=== PATIENT | male | born 1995 | race Two or more races ===

== ENCOUNTER 2024-11-08 09:44 | Emergency (ER) | payer SELFPAY ==
[2024-11-08 09:55] VITALS: BP 129/65; PULSE 60; RESP 16; TEMP 36.7; O2SAT 97; BMI 28.4
--- NOTE | 2024-11-08 09:58 | XR_ITS ---
Examination: CT abdomen and pelvis without contrast. Coronal 3-D reconstructions. Sagittal 2-D reconstructions. Date and time of exam:November 08, 2024 at 0236 hours INDICATIONS: Onset right-sided flank pain beginning this morning CTDI: vol (mGy): 8.04 DLP: (mGycm): 472 Technique: Axial images of the abdomen have been obtained, 3 mm slice thickness Intravenous contrast material has not been administered. Low dose protocols were performed. One or more of the following dose reduction techniques were used; automated exposure control, adjustment of the mA and/or KV according to patient size, use of iterative reconstruction technique. Findings: No focal liver or splenic lesions No gallstones No pancreatic or adrenal mass 8 mm soft calcification lower pole left kidney Minimal right hydronephrosis secondary to 2 mm distal right ureterovesical junction calculus No bowel obstruction Absent appendix Urinary bladder intact IMPRESSION: Minimal right hydronephrosis secondary to 2 mm distal right ureterovesical junction calculus
[2024-11-08] MEDS: ONDANSETRON ODT 4 MG TABRAP PO (10:03)
[2024-11-08] MEDS: KETOROLAC INJ 30 MG/ML VIAL IM (10:03)
[2024-11-08 10:12] LABS: Collection Type, Urine Clean Catch; Squamous Epithelial Cell,Urine 0 /hpf (0-5)
[2024-11-08 10:29] LABS: Basophils % (Auto) 0 % (0-2.5); Eosinophils % (Auto) 0 % (0-10); Hemoglobin 15.5 g/dL (13.5-16.0); Immature Granulocytes % (Auto) 0 % (0-0); Immature Granulocytes Auto 0.05 Thou/mm3 (0.00-0.00); Lymphocytes # (Auto) 1.1 Thou/mm3 (1.0-4.8); Lymphocytes % (Auto) 8 % (10-50); Mean Corpuscular HGB Conc 34.4 g/dl (31.0-37.0); Mean Corpuscular Hemoglobin 28.5 pg (25.0-35.0); Mean Corpuscular Volume 83 fL (80-100); Monocytes # (Auto) 0.6 Thou/mm3 (0.0-0.8); Monocytes % (Auto) 4 % (0-12); Neutrophils # (Auto) 12.1 Thou/mm3 (1.8-7.7); Neutrophils % (Auto) 87 % (37-80); Nucleated Red Blood Cell % 0 /100 WBC (0); Platelet Count 297 Thou/mm3 (140-440); RDW Standard Deviation 37.8 fL (35.1-43.9); Red Blood Count 5.44 Miln/mm3 (4.50-5.90); White Blood Count 13.9 Thou/mm3 (3.8-10.6)
[2024-11-08 10:37] LABS: Alanine Aminotransferase 13 U/L (10-49); Albumin, Serum 5.2 gm/dL (3.5-5.0); Albumin/Globulin Ratio 1.9 (1.2-2.2); Alkaline Phosphatase 93 U/L (46-116); Anion Gap 10 (7-16); Aspartate Amino Transferase 13 U/L (0-34); BUN/Creatinine Ratio 12 Ratio (12-20); Bilirubin,Total 1.4 mg/dL (0.3-1.2); Blood Urea Nitrogen 11 mg/dL (9-23); Calcium 10.3 mg/dL (8.3-10.6); Calcium (Corrected) 10.3 mg/dL (8.5-10.1); Carbon Dioxide 26.9 mMol/L (20.0-31.0); Chloride 106 mMol/L (98-107); Creatinine (Component) 0.9 mg/dL (0.6-1.3); Estimated Creatinine Clearance 128.4 mL/min (>60); Globulin 2.8 gm/dL (2.3-3.5); Glucose 128 mg/dL (74-106); Lipase 67 U/L (12-53); Osmolality,Calculated 286 (275-295); Potassium 3.4 mMol/L (3.4-5.1); Sodium 143 mMol/L (136-145); eGFR > 60 See Note
--- NOTE | 2024-11-08 11:14 | PD.EDABDPN ---
ED Abdominal Pain RME/HPI General Chief Complaint: Abdominal Pain Stated complaint: RIGHT SIDE ABD PAIN TODAY Time seen by provider: 11/08/24 09:47 Arrival date/time: 11/08/24 09:44 29-year-old male presents emergency department complaint of right flank pain ongoing x 1 day patient reports history of appendectomy patient reports no other significant problems Limitations: no limitations Related Data Previous Rx's ?Medication ?Instructions ?Recorded hydrocodone 5 mg-acetaminophen 325 1 tab PO BID PRN pain #10 tabs 11/08/24 mg tablet ibuprofen 800 mg tablet 800 mg PO TID PRN pain #30 tabs 11/08/24 ondansetron 4 mg disintegrating 4 mg PO Q8H PRN nausea and 11/08/24 tablet vomiting #10 tabs Allergies Allergy/AdvReac Type Severity Reaction Status Date / Time amoxicillin Allergy Severe Swelling Verified 11/08/24 09:46 of Lip/Tongue/Throat Review of Systems Review of Systems Systems Reviewed: All systems reviewed, normal except as documented Constitutional Constitutional: Reports system reviewed and no additional complaints, except as documented, Denies fever(s) and Denies headache(s) Eyes Eyes: Reports system reviewed and no additional complaints, except as documented and Denies blurry vision ENT Ears, Nose, Mouth, and Throat: Reports system reviewed and no additional complaints, except as documented, Denies headache(s), Denies nasal congestion and Denies nasal discharge Cardiovascular Cardiovascular: Reports system reviewed and no additional complaints, except as documented, Denies chest pain and Denies dyspnea Respiratory Respiratory: Reports system reviewed and no additional complaints, except as documented, Denies chest congestion, Denies cough and Denies dyspnea Gastrointestinal Gastrointestinal: Reports system reviewed and no additional complaints, except as documented, Denies abdominal pain and Reports other (Renal colic) Integumentary/Breasts Skin/Breast: Reports system reviewed and no additional complaints, except as documented and Denies rash Neurologic Neurologic: Reports system reviewed and no additional complaints, except as documented, Reports as per HPI and Denies headache(s) Past Medical History Social History SMOKING STATUS: Never smoker ED Exam General Limitations: Present no limitations General appearance: Present alert and in no apparent distress Head Head exam: Present atraumatic, normocephalic and normal inspection Eye Eye exam: Present normal appearance, PERRL and EOMI; Absent conjunctival injection ENT ENT exam: Present normal exam, normal oropharynx and mucous membranes moist Neck Neck exam: Present normal inspection, full ROM and trachea midline Chest Chest inspection: Present normal inspection and symmetric chest wall rise Respiratory Respiratory exam: Present normal lung sounds bilaterally; Absent respiratory distress Cardiovascular Cardiovascular exam: Present regular rate, normal rhythm and normal heart sounds Abdominal Exam Abdominal exam: Present soft, normal bowel sounds and other (Right flank pain); Absent distention, tenderness, guarding, rebound or rigidity Extremities Exam Extremities exam: Present normal inspection and full ROM Back Exam Back exam: Present normal inspection and full ROM Neurological Exam Neurological exam: Present alert, oriented X3 and CN II-XII intact Psychiatric Psychiatric exam: Present normal affect and normal mood Skin Skin exam: Present warm, dry, intact and normal color Course Quality Measures none Orders Category Date Time Status CT abdomen pelvis wo con Stat Exams 11/08/24 09:58 Completed CBC Stat Lab 11/08/24 10:07 Completed Comprehensive Metabolic Panel Stat Lab 11/08/24 10:07 Completed Lipase Stat Lab 11/08/24 10:07 Completed UA, C/S IF [Urinalysis, C/S if Indicated] Stat Lab 11/08/24 10:07 Completed Ketorolac Inj [Toradol Inj] Med 11/08/24 09:58 Discontinued 30 mg IM X1 ONE Ondansetron Odt [Zofran Odt] Med 11/08/24 09:58 Discontinued 4 mg PO X1 ONE Vital Signs Vital signs: Vital Signs Temperature 98.1 F 11/08/24 09:55 Pulse Rate 60 11/08/24 09:55 Respiratory Rate 16 11/08/24 09:55 Blood Pressure 129/65 11/08/24 09:55 Pulse Oximetry (%) 97 11/08/24 09:55 Oxygen Delivery Method Room Air 11/08/24 09:55 O2 saturation 97% room air within normal limits Abdominal Pain MDM MDM Narrative MDM Narrative:: 29-year-old male presents emergency department complaint of right flank pain ongoing x 1 day patient reports history of appendectomy patient reports no other significant problems On exam patient well-appearing patient does not appear ill or toxic and in no acute distress On exam patient does have quite a bit of pain Patient was given Toradol for pain Lab work as well as CT scan obtained CT scan consistent with kidney stone Symptoms highly consistent with renal colic Patient discharged home in no distress to follow-up with primary care doctor in the next 24 to 48 hours and for any worsening symptoms to return to the ER immediately Patient data External records reviewed:: [facility] previous records Clinical information provided by:: patient Social determinants that could affect healthcare access:: none Patient has the following chronic illnesses:: None How is presenting disease/condition affected by chronic disease/condition?: no chronic disease Evaluation data The following diagnostics were reviewed and interpreted by me:: lab results and radiology exam(s) Lab and/or radiology exams considered but not ordered:: Labs radiology obtained Interpretation Summary: Reviewed by me Medications / Prescriptions Medications or Prescriptions considered but not ordered:: Given Medication administrations:: Medication Administration History Discontinued Medications Ketorolac Tromethamine (Ketorolac Inj 30 Mg/Ml Vial) 30 mg IM X1 ONE Stop: 11/08/24 09:59 Last Admin: 11/08/24 10:03 Dose: 30 mg Documented By: LIZ Ondansetron HCl (Ondansetron Odt 4 Mg Tabrap) 4 mg PO X1 ONE; Protocol Stop: 11/08/24 09:59 Last Admin: 11/08/24 10:03 Dose: 4 mg Documented By: LIZ given Consultations Consultation(s) initiated? (list below): No Diagnosis Differential diagnosis abdominal pain: abdominal pain, acute appendicitis, calculus of kidney, gastroenteritis and pancreatitis Most likely diagnosis given after review of the tests above:: Calculus of kidney Admission Indicated Admission indicated?: not indicated Admission Request Was there a request for admission?: No Disposition Plan Disposition Plan: Discharge Discharge Attestation Discharge Attestation: The patient and all family members were given an opportunity to ask questions and understood the discharge instructions. Discharge instructions specifically effects, indications for sooner follow up or return to the emergency department, and the expected course of current diagnosis. Patient condition: Stable Discharge Plan Plan Patient Disposition: HOME (Self Care) Disposition Comment: Stable Prescriptions/Referrals Prescriptions/Med Rec: New ibuprofen 800 mg tablet 800 mg PO TID PRN (Reason: pain) Qty: 30 0RF hydrocodone-acetaminophen 5-325 mg tablet 1 tab PO BID MDD 10 PRN (Reason: pain) Qty: 10 0RF ondansetron 4 mg tablet,disintegrating 4 mg PO Q8H PRN (Reason: nausea and vomiting) Qty: 10 0RF Referrals: Truman Koch MD [Primary Care Provider] - 11/09/24 Problem List Clinical Impression: Renal colic Patient/Caregiver Discharge Instructions Education Materials: ED Kidney Stone w/ Colic Additional Instructions: Please follow up with your primary care doctor in the next 24-48hrs for any worsening symptoms return here immediately Print Language: Polish Stand Alone Forms: Tran Award Info., Work/School Release, Patient Portal Info Letter PA/ELEVATING GRADER OPERATOR Supervising Physician PA/ELEVATING GRADER OPERATOR Supervising Physician: Dr Singleton
[2024-11-08 11:23] LABS: Bilirubin,Urine Negative (Negative); Blood,Urine 3+ (Negative); Color,Urine Orange (Lt Yel-Yel); Culture Indicated,Urine Not Indicated; Glucose, Urine Negative (Negative); Ketones,Urine 1+ (Negative); Leukocyte Esterase,Urine Positive (Negative); Nitrite,Urine Negative (Negative); Protein,Urine 3+ (Neg - Trace); RBC,Urine 4577 /hpf (0-3); Specific Gravity,Urine 1.035 (1.001-1.035); Urobilinogen,Urine Negative mg/dL (0.0-1.0); WBC,Urine 3 /hpf (0-5)
[2024-11-08 11:33] LABS: Clarity,Urine Turbid (Clear/Hazy)
[2024-11-08 11:34] LABS: Sperm,Urine Present
== END 2024-11-08 12:10 | disposition home or self-care (01) ==
PROVIDERS: Nurse Practitioner Primary Care; Emergency Provider Emergency Medicine; PCP Family Medicine
DX: N23 Unspecified renal colic (principal); Z90.49 Acquired absence of other specified parts of digestive tract
CPT/HCPCS: 36415; 74176; 80053; 81001; 83690; 85025; 96372; 99284; J1885; Q0162

== ENCOUNTER 2025-09-23 21:21 | Emergency (ER) | payer BC, SELFPAY ==
[2025-09-23 21:22] VITALS: BMI 32.5
--- NOTE | 2025-09-23 21:43 | XR_ITS ---
Examination: Hand, left 3 views Technique: Hand AP, oblique, lateral 3 views Date and time of exam: September 23, 2025, 10:10 a.m. INDICATIONS: Injury to the hand today, hand pain. FINDINGS: No acute fracture No dislocation No foreign body IMPRESSION: No acute fracture
--- NOTE | 2025-09-23 21:44 | EDNOTE_ITS ---
Upper Extremity Injury RME/HPI General Chief Complaint: Hand/Wrist Problems Stated Complaint: L WRIST/HAND INJURY Time Seen by Provider: 09/23/25 21:25 Source: patient, RN notes reviewed and old records reviewed Arrival date/time: 09/23/25 21:21 Mode of arrival: ambulatory Limitations: no limitations RME / HPI RME / HPI narrative: 20yom presents to ED for hand pain. Patient reports he accidentally slammed left hand in the car door earlier today. No deformity reported. Patient took ibuprofen and applied velcro wrist brace customer support assistant. Related Data Previous Rx's ?Medication ?Instructions ?Recorded hydrocodone 5 mg-acetaminophen 325 1 tab PO BID PRN pa in #10 tabs 11/08/24 mg tablet ibuprofen 800 mg tablet 800 mg PO TID PRN pain #30 t abs 11/08/24 ondansetron 4 mg disintegrating 4 mg PO Q8H PRN nausea and 11/08/24 tablet vomiting #10 tabs Allergies Allergy/AdvReac Type Severity Reaction Status Date / Time amoxicillin Allergy Severe Swelling Verified 09/23/25 21:26 of Lip/Tongue/Throat Review of Systems Review of Systems Systems Reviewed: All systems reviewed, normal except as documented Musculoskeletal Musculoskeletal: Reports arthralgias, Denies deformity, Reports joint swelling, Reports limited range of motion, Denies numbness and Denies tingling Neurologic Neurologic: Denies numbness and Denies tingling Past Medical History Past Medical History GASTROINTESTINAL: Positive Obesity Surgical History OTHER SURGICAL HX: Denies past surgical history Social History SMOKING STATUS: Never smoker SUBSTANCE USE: does not use ALCOHOL: Never ED Exam General Limitations: Present no limitations General appearance: Present alert and in no apparent distress Head Head exam: Present atraumatic and normocephalic Eye Eye exam: Present normal appearance, PERRL and EOMI ENT ENT exam: Present normal exam and mucous membranes moist Neck Neck exam: Present normal inspection and full ROM Chest Chest inspection: Present normal inspection and symmetric chest wall rise Respiratory Respiratory exam: Present normal lung sounds bilaterally; Absent respiratory distress Cardiovascular Cardiovascular exam: Present regular rate and normal rhythm Extremities Exam Extremities exam: Present other (Mild tenderness/swelling to dorsal left hand. No wrist ttp. Limited ROM 2/2 pain. Able to wiggle all fingers. <2s cap refill, sensation intact) Neurological Exam Neurological exam: Present alert and oriented X3 Psychiatric Psychiatric exam: Present normal affect and normal mood Skin Skin exam: Present warm, dry, intact and other (Left dorsal hand contusion) Course Quality Measures none Orders Category Date Time Status XR hand comp LT min 3V Stat Exams 09/23/25 21:43 Completed Vital Signs Vital signs: Vital Signs Temperature 98.4 F 09/23/25 21:46 Pulse Rate 86 09/23/25 21:46 Respiratory Rate 18 09/23/25 21:46 Blood Pressure 126/79 09/23/25 21:46 Pulse Oximetry (%) 96 09/23/25 21:46 Oxygen Delivery Method Room Air 09/23/25 21:46 Extremity Injury MDM Narrative MDM Narrative:: 20yom presents to ED for hand pain. Patient reports he accidentally slammed left hand in the car door earlier today. No deformity reported. Patient took ibuprofen and applied velcro wrist brace customer support assistant. X-rays negative. Patient is neurovascularly intact. Encouraged RICE therapy, Motrin/Tylenol prn pain. Stable for discharge, RTED precautions given. Patient data External records reviewed:: [facility] previous records (11/08/2024 ED visit for renal colic) Clinical information provided by:: patient Social determinants that could affect healthcare access:: none Patient has the following chronic illnesses:: Obesity How is presenting disease/condition affected by chronic disease/condition?: uneffected by Evaluation data The following diagnostics were reviewed and interpreted by me:: radiology exam(s) Lab and/or radiology exams considered but not ordered:: None Interpretation Summary: And x-rays: No fracture per my read Medications / Prescriptions Medications or Prescriptions considered but not ordered:: None Medication administrations:: None Consultations Consultation(s) initiated? (list below): No Diagnosis Upper Extremity Injury Differential Diagnosis: other (Fracture, dislocation, sprain, strain, contusion, MSK pain) Most likely diagnosis given after review of the tests above:: Hand contusion Admission Indicated Admission indicated?: not indicated Admission Request Was there a request for admission?: No Disposition Plan Disposition Plan: Discharge Discharge Attestation Discharge Attestation: The patient and all family members were given an opportunity to ask questions and understood the discharge instructions. Discharge instructions specifically effects, indications for sooner follow up or return to the emergency department, and the expected course of current diagnosis. Patient condition: Stable Discharge Plan Plan Patient Disposition: HOME (Self Care) Patient condition on transfer: Stable Prescriptions/Referrals Prescriptions/Med Rec: No Action ibuprofen 800 mg tablet 800 mg PO TID PRN (Reason: pain) Qty: 30 0RF hydrocodone-acetaminophen 5-325 mg tablet 1 tab PO BID MDD 10 PRN (Reason: pain) Qty: 10 0RF ondansetron 4 mg tablet,disintegrating 4 mg PO Q8H PRN (Reason: nausea and vomiting) Qty: 10 0RF Referrals: No Primary/Family,Physician [Primary Care Provider] - In 1 week Problem List Clinical Impression: Contusion of left hand Patient/Caregiver Discharge Instructions Education Materials: ED Hand Contusion Additional Instructions: Alternate ibuprofen and Tylenol every 4-6 hours as needed for pain. Ice application can help with swelling. Print Language: Maltese Stand Alone Forms: Tran Award Info., Patient Portal Info Letter PA/SPLICING SUPERVISOR Supervising Physician PA/SPLICING SUPERVISOR Supervising Physician: Patience
[2025-09-23 21:46] VITALS: BP 126/79; PULSE 86; RESP 18; TEMP 36.9; O2SAT 96
== END 2025-09-23 23:16 | disposition home or self-care (01) ==
PROVIDERS: Emergency Provider Emergency Medicine
DX: S60.222A Contusion of left hand, initial encounter (principal); W23.0XXA Caught, crushed, jammed, or pinched between moving objects, initial encounter; Y92.810 Car as the place of occurrence of the external cause
CPT/HCPCS: 73130; 99282